=== PATIENT | female | born 1985 | race Two or more races ===

== ENCOUNTER 2024-07-28 16:07 | Emergency (ER) | payer BC ==
[~2024-07-28] VITALS: Ht 154.9 cm; Wt 70.3 kg
[2024-07-28] MEDS ORDERED: HYDROCODONE/APAP 5/325MG TABLET ONE (16:47)
[2024-07-28] MEDS ORDERED: IBUPROFEN 400 MG TABLET ONE (16:47)
[2024-07-28] MEDS: IBUPROFEN 400 MG TABLET PO ONE (17:08)
[2024-07-28] MEDS: HYDROCODONE/APAP 5/325MG TABLET PO ONE (17:08)
[2024-07-28] MEDS ORDERED: HYDR-3980 PO (18:12)
[2024-07-28] MEDS ORDERED: PSEU120T83 PO (18:12)
[2024-07-28] MEDS ORDERED: AMOX-430 PO (18:12)
[2024-07-28 18:51] VITALS: BP 151/99; TEMP 98; O2SAT 100
== END 2024-07-28 18:51 | disposition home or self-care (01) ==
LOC: ER 16:39
DX: S02.2XXA Fracture of nasal bones, initial encounter for closed fracture (principal); R42 Dizziness and giddiness; R51.9 Headache, unspecified; W21.07XA Struck by softball, initial encounter; Y93.89 Activity, other specified; Y92.89 Other specified places as the place of occurrence of the external cause; Y99.8 Other external cause status
CPT/HCPCS: 70450-TC; 70486-TC